=== PATIENT | female | born 1935 | race Hispanic/Latino ===

== ENCOUNTER 2016-09-23 15:21 | Outpatient (CLI) | payer MEDICARE ==
[2016-09-23 15:50] LABS: Appearance,CSF Clear; White Blood Cell,CSF 0 /mm3 (1-10)
[2016-09-23 17:03] LABS: Basophils CSF 0 %
[2016-09-23 19:14] LABS: CSF Diff Status Complete
[2016-09-23 19:15] LABS: Glucose,CSF < 2 mg/dL
== END 2016-09-23 15:22 | disposition home or self-care (01) ==
LOC: LAB 15:21 → LABHHL 15:21 → LAB 15:22
PROVIDERS: ATTEND Neurological Surgery
DX: G91.2 (Idiopathic) normal pressure hydrocephalus (principal)
CPT/HCPCS: 82947; 84160; 87075; 87116; 89051

== ENCOUNTER 2020-03-16 06:07 | Inpatient (IN) | payer MEDICARE, OTHER ==
[~2020-03-16 06:07] MED LIST: BACTERIOSTATIC SODIUM CHLORIDE 0.9% 30 ML VIAL INFILTRATI ONE; SODIUM CHLORIDE 0.9% 1000 ML 1,000 ML IV SCH
[2020-03-16] MEDS ORDERED: BACITRACIN 50,000 UNIT VIAL ONE (06:52)
[2020-03-16] MEDS ORDERED: GELATIN SPONGE SIZE 100 TP ONE (06:52)
[2020-03-16] MEDS ORDERED: LIDOCAINE 0.5%/EPINEPHRINE 1:200,000 VIAL (50 ML) MDV INFILTRATI ONE ×3 (06:52→09:00)
[2020-03-16] MEDS ORDERED: SODIUM CHLORIDE P/F VIAL 10 ML 10 ML ONE (06:52)
[2020-03-16] MEDS ORDERED: THROMBIN (RECOMBINANT) 5,000 UNIT VIAL TP ONE (06:53)
--- NOTE | 2020-03-16 07:28 | Anesthesia Consultation ---
Anesthesia Consult and Med Hx Date of service: 03/16/20 - Airway Anesthetic Teeth Evaluation: Good ROM Head & Neck: Inadequate Mental/Hyoid Distance: Inadequate Mallampati Class: Class III Intubation Access Assessment: Possibly Difficult - Pulmonary Exam CTA: Yes - Cardiac Exam Cardiac Exam: RRR - Pre-Operative Health Status ASA Pre-Surgery Classification: ASA4 Proposed Anesthetic Plan: General - Central Nervous System Hx Neuromuscular Disorder: Yes (normal pressure hydrocephalus)
[2020-03-16] MEDS ORDERED: PHENYLEPHRINE/NS 1,000 MCG/10 ML SYRINGE (OR USE) IV ONE (07:30)
[2020-03-16] MEDS ORDERED: dexAMETHasone 20 MG/5 ML VIAL ONE (07:30)
--- NOTE | 2020-03-16 07:30 | Anesthesia Day of Surgery ---
Anesthesia Day of Surgery - Day of Surgery Patient Examined: Yes Patient H&P Reviewed: Yes Patient is NPO: Yes
[2020-03-16] MEDS ORDERED: ROCURONIUM 50 MG/5 ML INJ IV ONE (07:32)
[2020-03-16] MEDS ORDERED: propofoL 200 MG/20 ML VIAL IV ONE (07:32)
[2020-03-16] MEDS ORDERED: LIDOCAINE MPF (2%) 20 MG/1 ML VIAL 5 ML ONE (07:33)
[2020-03-16] MEDS ORDERED: fentaNYL 100 MCG/2 ML INJ ONE (07:33)
[2020-03-16] MEDS ORDERED: ONDANSETRON 4 MG/2 ML INJ ONE (07:33)
[2020-03-16] MEDS ORDERED: SODIUM CHLORIDE 0.9% 0 ML ONE (07:34)
[2020-03-16] MEDS ORDERED: SODIUM CHLORIDE 0.9% 250ML 0 ML ONE (07:34)
[2020-03-16] MEDS ORDERED: fentaNYL 100 MCG/2 ML INJ IV PRN (07:52)
[2020-03-16] MEDS ORDERED: BACITRACIN ZINC OINT 28.4 GM TP ONE (08:11)
[2020-03-16] MEDS ORDERED: SUGAMMADEX SODIUM 200 MG/2 ML VIAL IV ONE (08:59)
[2020-03-16] MEDS ORDERED: SODIUM CHLORIDE 0.9% IRR 1,500 ML BOTTLE IR ONE (09:00)
[2020-03-16 09:50] LABS: Glucose,CSF 74 mg/dL
--- NOTE | 2020-03-16 09:52 | Post Operative Note ---
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
--- NOTE | 2020-03-16 11:26 | Post Anesthesia Evaluation ---
- Post Anesthesia Evaluation Patient Participated: Yes Airway Patent: Yes Stable Respiratory Function: Yes Nausea/Vomiting: No Temp > 96.8F: Yes Pain Manageable: Yes Adequeate Hydration: Yes Anesthesia Complications: No
[2020-03-16 11:38] LABS: Appearance,CSF Clear; Red Blood Cell,CSF 0 /mm3 (0-0); Total Cells Counted 17 /mm3; White Blood Cell,CSF 0 /mm3 (1-10)
--- NOTE | 2020-03-16 18:15 | Consultation ---
History of Present Illness - Reason for Consult Consult date: 03/16/20 Ventricular Shunt Monitoring - History of Present Illness 85 y/o female admitted post op for ventricular drain revision. Asked by neurosurgery to monitor in ICU. Medications and Allergies Allergies Allergy/AdvReac Type Severity Reaction Status Date / Time amoxicillin AdvReac Unknown Verified 03/16/20 06:22 cefuroxime [From Ceftin] AdvReac Nausea Verified 03/16/20 06:22 codeine AdvReac Unknown Verified 03/16/20 06:20 levofloxacin [From Levaquin] AdvReac Unknown Verified 03/16/20 06:22 nitrofurantoin AdvReac Unknown Verified 03/16/20 06:22 [From Macrobid] rofecoxib [From Vioxx] AdvReac Unknown Verified 03/16/20 06:22 sulfamethoxazole AdvReac Unknown Verified 03/16/20 06:22 [From Bactrim] trimethoprim [From Bactrim] AdvReac Unknown Verified 03/16/20 06:22 Home Medications Medication Instructions Recorded Confirmed Last Taken Type Aspirin [Adult Aspirin] 81 mg PO DAILY 03/13/20 03/16/20 03/13/20 History Latanoprostene Bunod [Vyzulta] 2.5 drops OP DAILY 03/13/20 03/13/20 03/15/20 History Tolterodine (Nf) [Detrol LA] 4 mg PO QDAY 03/13/20 03/13/20 03/15/20 History predniSONE [Deltasone] 4 mg PO QDAY 03/13/20 03/13/20 03/15/20 History Mirabegron [Myrbetriq] 25 mg PO QDAY 03/15/20 03/15/20 03/15/20 History Active Meds: Active Medications Hydralazine HCl (Apresoline) 5 mg IV Q4H PRN PRN Reason: Hypertension Clindamycin HCl (Cleocin 900 Mg/50 Ml) 900 mg in 50 mls @ 100 mls/hr IV PREOP NR; Protocol Stop: 03/16/20 21:00 Clindamycin HCl (Cleocin 900 Mg/50 Ml) 900 mg in 50 mls @ 100 mls/hr IV Q8HR FELICIANO; Protocol Last Admin: 03/16/20 15:32 Dose: 100 mls/hr Documented by: Sodium Chloride (Nacl 0.9% 1000 Ml) 1,000 mls @ 75 mls/hr IV DIRECT FELICIANO Tramadol HCl (Ultram) 50 mg PO Q6H PRN PRN Reason: Pain, Moderate (4-6) Review of Systems All systems: negative Exam - Constitutional Vitals: Temp Pulse Resp BP Pulse Ox 98.1 F 58 L 14 134/56 100 03/16/20 09:45 03/16/20 16:26 03/16/20 10:15 03/16/20 10:15 03/16/20 10:15 General appearance: Present: no acute distress, well-nourished - EENT Eyes: Present: PERRL, EOM intact ENT: hearing intact - Neck Neck: Present: supple, normal ROM - Respiratory Respiratory effort: normal Respiratory: bilateral: CTA - Cardiovascular Rhythm: regular Assessment and Plan Stable 85 y/o post ventric revision resume home meds tomorrow If bed situation comes up, patient is stable enough for surgical floor with remote tele Will transfer out of unit in AM.
--- NOTE | 2020-03-17 12:27 | Progress Note ---
Assessment and Plan Stable 85 y/o post ventric revision resume home meds, hold asa at request of surgery. We do not have Vyzulta and Mirabegron on Formulary here. Family will need to bring in if possible. One is for Glaucoma and the other med is for overactive bladder. If bed situation comes up, patient is stable enough for surgical floor with remote tele Will transfer out of unit. Will place orders for now and order consult to hospitalist as neurosurgery needs help with management. Will sign off once out of unit. Subjective Date of service: 03/17/20 Interval history: No acute events. Spoke with Neurosurgery over the phone this am. They are going to get a CT of the head. mental status is fine. patient is stable. Objective - Constitutional Vitals: Vital Signs - 12hr 03/17/20 03/17/20 03/17/20 00:21 00:31 00:41 Temperature Pulse Rate 58 L 66 55 L Pulse Rate [ Apical] Pulse Rate [ From Monitor] Pulse Rate [ Left Dorsalis Pedis] Pulse Rate [ Left Radial] Pulse Rate [ Right Dorsalis Pedis] Pulse Rate [ Right Radial] Respiratory 17 9 L 13 Rate Blood Pressure 154/52 154/52 154/52 O2 Sat by Pulse 91 95 93 Oximetry 03/17/20 03/17/20 03/17/20 00:51 01:00 01:11 Temperature Pulse Rate 58 L 54 L 54 L Pulse Rate [ Apical] Pulse Rate [ From Monitor] Pulse Rate [ Left Dorsalis Pedis] Pulse Rate [ Left Radial] Pulse Rate [ Right Dorsalis Pedis] Pulse Rate [ Right Radial] Respiratory 15 14 12 Rate Blood Pressure 154/52 138/58 138/58 O2 Sat by Pulse 91 91 95 Oximetry 03/17/20 03/17/20 03/17/20 01:21 01:31 01:41 Temperature Pulse Rate 57 L 53 L 58 L Pulse Rate [ Apical] Pulse Rate [ From Monitor] Pulse Rate [ Left Dorsalis Pedis] Pulse Rate [ Left Radial] Pulse Rate [ Right Dorsalis Pedis] Pulse Rate [ Right Radial] Respiratory 12 13 12 Rate Blood Pressure 138/58 138/58 138/58 O2 Sat by Pulse 94 95 95 Oximetry 03/17/20 03/17/20 03/17/20 01:51 02:01 02:11 Temperature Pulse Rate 54 L 56 L 60 Pulse Rate [ Apical] Pulse Rate [ From Monitor] Pulse Rate [ Left Dorsalis Pedis] Pulse Rate [ Left Radial] Pulse Rate [ Right Dorsalis Pedis] Pulse Rate [ Right Radial] Respiratory 13 13 13 Rate Blood Pressure 138/58 144/55 144/55 O2 Sat by Pulse 94 91 95 Oximetry 03/17/20 03/17/20 03/17/20 02:21 02:31 02:41 Temperature Pulse Rate 55 L 57 L 58 L Pulse Rate [ Apical] Pulse Rate [ From Monitor] Pulse Rate [ Left Dorsalis Pedis] Pulse Rate [ Left Radial] Pulse Rate [ Right Dorsalis Pedis] Pulse Rate [ Right Radial] Respiratory 13 11 L 13 Rate Blood Pressure 144/55 144/55 144/55 O2 Sat by Pulse 97 93 95 Oximetry 03/17/20 03/17/20 03/17/20 02:51 03:01 03:11 Temperature Pulse Rate 55 L 54 L 56 L Pulse Rate [ Apical] Pulse Rate [ From Monitor] Pulse Rate [ Left Dorsalis Pedis] Pulse Rate [ Left Radial] Pulse Rate [ Right Dorsalis Pedis] Pulse Rate [ Right Radial] Respiratory 13 15 12 Rate Blood Pressure 144/55 149/56 149/56 O2 Sat by Pulse 93 95 95 Oximetry 03/17/20 03/17/20 03/17/20 03:21 03:24 03:31 Temperature 97.9 F Pulse Rate 55 L 55 L Pulse Rate [ Apical] Pulse Rate [ From Monitor] Pulse Rate [ Left Dorsalis Pedis] Pulse Rate [ Left Radial] Pulse Rate [ Right Dorsalis Pedis] Pulse Rate [ Right Radial] Respiratory 13 14 Rate Blood Pressure 149/56 149/56 O2 Sat by Pulse 93 95 Oximetry 03/17/20 03/17/20 03/17/20 03:32 03:34 03:41 Temperature Pulse Rate 56 L 57 L Pulse Rate [ 65 Apical] Pulse Rate [ 65 From Monitor] Pulse Rate [ 65 Left Dorsalis Pedis] Pulse Rate [ 65 Left Radial] Pulse Rate [ 65 Right Dorsalis Pedis] Pulse Rate [ 65 Right Radial] Respiratory 22 16 Rate Blood Pressure 149/56 O2 Sat by Pulse 96 95 Oximetry 03/17/20 03/17/20 03/17/20 03:51 04:00 04:11 Temperature Pulse Rate 55 L 56 L 55 L Pulse Rate [ Apical] Pulse Rate [ From Monitor] Pulse Rate [ Left Dorsalis Pedis] Pulse Rate [ Left Radial] Pulse Rate [ Right Dorsalis Pedis] Pulse Rate [ Right Radial] Respiratory 15 13 14 Rate Blood Pressure 149/56 156/58 156/58 O2 Sat by Pulse 92 93 96 Oximetry 03/17/20 03/17/20 03/17/20 04:21 04:31 04:41 Temperature Pulse Rate 59 L 57 L 63 Pulse Rate [ Apical] Pulse Rate [ From Monitor] Pulse Rate [ Left Dorsalis Pedis] Pulse Rate [ Left Radial] Pulse Rate [ Right Dorsalis Pedis] Pulse Rate [ Right Radial] Respiratory 10 L 14 11 L Rate Blood Pressure 156/58 156/58 156/58 O2 Sat by Pulse 95 96 96 Oximetry 03/17/20 03/17/20 03/17/20 04:51 05:00 05:11 Temperature Pulse Rate 57 L 59 L 70 Pulse Rate [ Apical] Pulse Rate [ From Monitor] Pulse Rate [ Left Dorsalis Pedis] Pulse Rate [ Left Radial] Pulse Rate [ Right Dorsalis Pedis] Pulse Rate [ Right Radial] Respiratory 14 16 17 Rate Blood Pressure 156/58 153/62 153/62 O2 Sat by Pulse 96 95 95 Oximetry 03/17/20 03/17/20 03/17/20 05:21 05:31 05:41 Temperature Pulse Rate 58 L 57 L 55 L Pulse Rate [ Apical] Pulse Rate [ From Monitor] Pulse Rate [ Left Dorsalis Pedis] Pulse Rate [ Left Radial] Pulse Rate [ Right Dorsalis Pedis] Pulse Rate [ Right Radial] Respiratory 12 13 13 Rate Blood Pressure 153/62 153/62 153/62 O2 Sat by Pulse 96 95 96 Oximetry 03/17/20 03/17/20 03/17/20 05:51 06:00 06:11 Temperature Pulse Rate 60 57 L 54 L Pulse Rate [ Apical] Pulse Rate [ From Monitor] Pulse Rate [ Left Dorsalis Pedis] Pulse Rate [ Left Radial] Pulse Rate [ Right Dorsalis Pedis] Pulse Rate [ Right Radial] Respiratory 18 14 14 Rate Blood Pressure 153/62 158/55 158/55 O2 Sat by Pulse 94 97 96 Oximetry 03/17/20 03/17/20 03/17/20 06:21 06:31 06:41 Temperature Pulse Rate 54 L 53 L 55 L Pulse Rate [ Apical] Pulse Rate [ From Monitor] Pulse Rate [ Left Dorsalis Pedis] Pulse Rate [ Left Radial] Pulse Rate [ Right Dorsalis Pedis] Pulse Rate [ Right Radial] Respiratory 13 15 14 Rate Blood Pressure 158/55 158/55 158/55 O2 Sat by Pulse 95 94 96 Oximetry 03/17/20 03/17/20 03/17/20 06:51 07:01 07:11 Temperature Pulse Rate 52 L 55 L 53 L Pulse Rate [ Apical] Pulse Rate [ From Monitor] Pulse Rate [ Left Dorsalis Pedis] Pulse Rate [ Left Radial] Pulse Rate [ Right Dorsalis Pedis] Pulse Rate [ Right Radial] Respiratory 14 9 L 12 Rate Blood Pressure 158/55 139/52 139/52 O2 Sat by Pulse 96 96 95 Oximetry 03/17/20 03/17/20 03/17/20 07:21 07:31 07:41 Temperature Pulse Rate 53 L 56 L 53 L Pulse Rate [ Apical] Pulse Rate [ From Monitor] Pulse Rate [ Left Dorsalis Pedis] Pulse Rate [ Left Radial] Pulse Rate [ Right Dorsalis Pedis] Pulse Rate [ Right Radial] Respiratory 13 11 L 13 Rate Blood Pressure 139/52 139/52 139/52 O2 Sat by Pulse 95 93 97 Oximetry 03/17/20 03/17/20 07:51 08:00 Temperature Pulse Rate 60 58 L Pulse Rate [ 58 L Apical] Pulse Rate [ 58 L From Monitor] Pulse Rate [ 58 L Left Dorsalis Pedis] Pulse Rate [ 58 L Left Radial] Pulse Rate [ 58 L Right Dorsalis Pedis] Pulse Rate [ 58 L Right Radial] Respiratory 19 13 Rate Blood Pressure 139/52 155/56 O2 Sat by Pulse 94 94 Oximetry Medications & Allergies - Medications Allergies/Adverse Reactions: Allergies amoxicillin Adverse Reaction (Verified 03/16/20 06:22) Unknown GASTRITIS cefuroxime [From Ceftin] Adverse Reaction (Verified 03/16/20 06:22) Nausea STATES RELIEVED WITH FOOD codeine Adverse Reaction (Verified 03/16/20 06:20) Unknown levofloxacin [From Levaquin] Adverse Reaction (Verified 03/16/20 06:22) Unknown WEAKNESS nitrofurantoin [From Macrobid] Adverse Reaction (Verified 03/16/20 06:22) Unknown GASTRITIS rofecoxib [From Vioxx] Adverse Reaction (Verified 03/16/20 06:22) Unknown CHEST PAIN sulfamethoxazole [From Bactrim] Adverse Reaction (Verified 03/16/20 06:22) Unknown GASTRITIS trimethoprim [From Bactrim] Adverse Reaction (Verified 03/16/20 06:22) Unknown GASTRITIS Home Medications: Home Medications Medication Instructions Recorded Confirmed Last Taken Type Aspirin [Adult Aspirin] 81 mg PO DAILY 03/13/20 03/16/20 03/13/20 History Latanoprostene Bunod [Vyzulta] 2.5 drops OP DAILY 03/13/20 03/13/20 03/15/20 History Tolterodine (Nf) [Detrol LA] 4 mg PO QDAY 03/13/20 03/13/20 03/15/20 History predniSONE [Deltasone] 4 mg PO QDAY 03/13/20 03/13/20 03/15/20 History Mirabegron [Myrbetriq] 25 mg PO QDAY 03/15/20 03/15/20 03/15/20 History Active Medications: Generic Name Dose Route Start Last Admin Trade Name Freq PRN Reason Stop Dose Admin Hydralazine HCl 5 mg 03/16/20 11:48 Apresoline IV Q4H PRN Hypertension Clindamycin HCl 900 mg in 50 mls @ 100 mls/hr 03/16/20 14:00 03/17/20 05:51 Cleocin 900 Mg/50 Ml IV 100 mls/hr Q8HR FELICIANO Administration Protocol Sodium Chloride 1,000 mls @ 75 mls/hr 03/16/20 11:48 Nacl 0.9% 1000 Ml IV DIRECT FELICIANO Tramadol HCl 50 mg 03/16/20 11:48 Ultram PO Q6H PRN Pain, Moderate (4-6)
--- NOTE | 2020-03-17 13:27 | Progress Note ---
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 She denies present concerns, denies pain. Objective - Exam Narrative Exam: seen and examined no acute distress awake and alert states that she is ok, no pain follows commands briskly x 4 without focal deficit - Vital Sign Vital Signs - 12hr 03/17/20 03/17/20 03/17/20 01:31 01:41 01:51 Temperature Pulse Rate 53 L 58 L 54 L Pulse Rate [ Apical] Pulse Rate [ From Monitor] Pulse Rate [ Left Dorsalis Pedis] Pulse Rate [ Left Radial] Pulse Rate [ Right Dorsalis Pedis] Pulse Rate [ Right Radial] Respiratory 13 12 13 Rate Blood Pressure 138/58 138/58 138/58 O2 Sat by Pulse 95 95 94 Oximetry 03/17/20 03/17/20 03/17/20 02:01 02:11 02:21 Temperature Pulse Rate 56 L 60 55 L Pulse Rate [ Apical] Pulse Rate [ From Monitor] Pulse Rate [ Left Dorsalis Pedis] Pulse Rate [ Left Radial] Pulse Rate [ Right Dorsalis Pedis] Pulse Rate [ Right Radial] Respiratory 13 13 13 Rate Blood Pressure 144/55 144/55 144/55 O2 Sat by Pulse 91 95 97 Oximetry 03/17/20 03/17/20 03/17/20 02:31 02:41 02:51 Temperature Pulse Rate 57 L 58 L 55 L Pulse Rate [ Apical] Pulse Rate [ From Monitor] Pulse Rate [ Left Dorsalis Pedis] Pulse Rate [ Left Radial] Pulse Rate [ Right Dorsalis Pedis] Pulse Rate [ Right Radial] Respiratory 11 L 13 13 Rate Blood Pressure 144/55 144/55 144/55 O2 Sat by Pulse 93 95 93 Oximetry 03/17/20 03/17/20 03/17/20 03:01 03:11 03:21 Temperature Pulse Rate 54 L 56 L 55 L Pulse Rate [ Apical] Pulse Rate [ From Monitor] Pulse Rate [ Left Dorsalis Pedis] Pulse Rate [ Left Radial] Pulse Rate [ Right Dorsalis Pedis] Pulse Rate [ Right Radial] Respiratory 15 12 13 Rate Blood Pressure 149/56 149/56 149/56 O2 Sat by Pulse 95 95 93 Oximetry 03/17/20 03/17/20 03/17/20 03:24 03:31 03:32 Temperature 97.9 F Pulse Rate 55 L Pulse Rate [ 65 Apical] Pulse Rate [ 65 From Monitor] Pulse Rate [ 65 Left Dorsalis Pedis] Pulse Rate [ 65 Left Radial] Pulse Rate [ 65 Right Dorsalis Pedis] Pulse Rate [ 65 Right Radial] Respiratory 14 22 Rate Blood Pressure 149/56 O2 Sat by Pulse 95 96 Oximetry 03/17/20 03/17/20 03/17/20 03:34 03:41 03:51 Temperature Pulse Rate 56 L 57 L 55 L Pulse Rate [ Apical] Pulse Rate [ From Monitor] Pulse Rate [ Left Dorsalis Pedis] Pulse Rate [ Left Radial] Pulse Rate [ Right Dorsalis Pedis] Pulse Rate [ Right Radial] Respiratory 16 15 Rate Blood Pressure 149/56 149/56 O2 Sat by Pulse 95 92 Oximetry 03/17/20 03/17/20 03/17/20 04:00 04:11 04:21 Temperature Pulse Rate 56 L 55 L 59 L Pulse Rate [ Apical] Pulse Rate [ From Monitor] Pulse Rate [ Left Dorsalis Pedis] Pulse Rate [ Left Radial] Pulse Rate [ Right Dorsalis Pedis] Pulse Rate [ Right Radial] Respiratory 13 14 10 L Rate Blood Pressure 156/58 156/58 156/58 O2 Sat by Pulse 93 96 95 Oximetry 03/17/20 03/17/20 03/17/20 04:31 04:41 04:51 Temperature Pulse Rate 57 L 63 57 L Pulse Rate [ Apical] Pulse Rate [ From Monitor] Pulse Rate [ Left Dorsalis Pedis] Pulse Rate [ Left Radial] Pulse Rate [ Right Dorsalis Pedis] Pulse Rate [ Right Radial] Respiratory 14 11 L 14 Rate Blood Pressure 156/58 156/58 156/58 O2 Sat by Pulse 96 96 96 Oximetry 03/17/20 03/17/20 03/17/20 05:00 05:11 05:21 Temperature Pulse Rate 59 L 70 58 L Pulse Rate [ Apical] Pulse Rate [ From Monitor] Pulse Rate [ Left Dorsalis Pedis] Pulse Rate [ Left Radial] Pulse Rate [ Right Dorsalis Pedis] Pulse Rate [ Right Radial] Respiratory 16 17 12 Rate Blood Pressure 153/62 153/62 153/62 O2 Sat by Pulse 95 95 96 Oximetry 03/17/20 03/17/20 03/17/20 05:31 05:41 05:51 Temperature Pulse Rate 57 L 55 L 60 Pulse Rate [ Apical] Pulse Rate [ From Monitor] Pulse Rate [ Left Dorsalis Pedis] Pulse Rate [ Left Radial] Pulse Rate [ Right Dorsalis Pedis] Pulse Rate [ Right Radial] Respiratory 13 13 18 Rate Blood Pressure 153/62 153/62 153/62 O2 Sat by Pulse 95 96 94 Oximetry 03/17/20 03/17/20 03/17/20 06:00 06:11 06:21 Temperature Pulse Rate 57 L 54 L 54 L Pulse Rate [ Apical] Pulse Rate [ From Monitor] Pulse Rate [ Left Dorsalis Pedis] Pulse Rate [ Left Radial] Pulse Rate [ Right Dorsalis Pedis] Pulse Rate [ Right Radial] Respiratory 14 14 13 Rate Blood Pressure 158/55 158/55 158/55 O2 Sat by Pulse 97 96 95 Oximetry 03/17/20 03/17/20 03/17/20 06:31 06:41 06:51 Temperature Pulse Rate 53 L 55 L 52 L Pulse Rate [ Apical] Pulse Rate [ From Monitor] Pulse Rate [ Left Dorsalis Pedis] Pulse Rate [ Left Radial] Pulse Rate [ Right Dorsalis Pedis] Pulse Rate [ Right Radial] Respiratory 15 14 14 Rate Blood Pressure 158/55 158/55 158/55 O2 Sat by Pulse 94 96 96 Oximetry 03/17/20 03/17/20 03/17/20 07:01 07:11 07:21 Temperature Pulse Rate 55 L 53 L 53 L Pulse Rate [ Apical] Pulse Rate [ From Monitor] Pulse Rate [ Left Dorsalis Pedis] Pulse Rate [ Left Radial] Pulse Rate [ Right Dorsalis Pedis] Pulse Rate [ Right Radial] Respiratory 9 L 12 13 Rate Blood Pressure 139/52 139/52 139/52 O2 Sat by Pulse 96 95 95 Oximetry 03/17/20 03/17/20 03/17/20 07:31 07:41 07:51 Temperature Pulse Rate 56 L 53 L 60 Pulse Rate [ Apical] Pulse Rate [ From Monitor] Pulse Rate [ Left Dorsalis Pedis] Pulse Rate [ Left Radial] Pulse Rate [ Right Dorsalis Pedis] Pulse Rate [ Right Radial] Respiratory 11 L 13 19 Rate Blood Pressure 139/52 139/52 139/52 O2 Sat by Pulse 93 97 94 Oximetry 03/17/20 03/17/20 03/17/20 08:00 08:11 08:21 Temperature Pulse Rate 58 L 49 L 52 L Pulse Rate [ 58 L Apical] Pulse Rate [ 58 L From Monitor] Pulse Rate [ 58 L Left Dorsalis Pedis] Pulse Rate [ 58 L Left Radial] Pulse Rate [ 58 L Right Dorsalis Pedis] Pulse Rate [ 58 L Right Radial] Respiratory 13 11 L 14 Rate Blood Pressure 155/56 155/56 155/56 O2 Sat by Pulse 94 93 97 Oximetry 03/17/20 03/17/20 03/17/20 08:31 08:41 08:51 Temperature Pulse Rate 53 L 52 L 53 L Pulse Rate [ Apical] Pulse Rate [ From Monitor] Pulse Rate [ Left Dorsalis Pedis] Pulse Rate [ Left Radial] Pulse Rate [ Right Dorsalis Pedis] Pulse Rate [ Right Radial] Respiratory 14 14 11 L Rate Blood Pressure 155/56 155/56 155/56 O2 Sat by Pulse 94 95 95 Oximetry 03/17/20 03/17/20 03/17/20 09:01 09:11 09:21 Temperature Pulse Rate 55 L 58 L 60 Pulse Rate [ Apical] Pulse Rate [ From Monitor] Pulse Rate [ Left Dorsalis Pedis] Pulse Rate [ Left Radial] Pulse Rate [ Right Dorsalis Pedis] Pulse Rate [ Right Radial] Respiratory 14 11 L 12 Rate Blood Pressure 146/74 155/56 155/56 O2 Sat by Pulse 95 96 97 Oximetry 03/17/20 03/17/20 03/17/20 09:31 09:41 09:51 Temperature Pulse Rate 57 L 57 L 63 Pulse Rate [ Apical] Pulse Rate [ From Monitor] Pulse Rate [ Left Dorsalis Pedis] Pulse Rate [ Left Radial] Pulse Rate [ Right Dorsalis Pedis] Pulse Rate [ Right Radial] Respiratory 9 L 18 9 L Rate Blood Pressure 155/56 146/74 146/74 O2 Sat by Pulse 98 96 95 Oximetry 03/17/20 03/17/20 03/17/20 10:01 10:11 10:21 Temperature Pulse Rate 65 66 58 L Pulse Rate [ Apical] Pulse Rate [ From Monitor] Pulse Rate [ Left Dorsalis Pedis] Pulse Rate [ Left Radial] Pulse Rate [ Right Dorsalis Pedis] Pulse Rate [ Right Radial] Respiratory 12 13 10 L Rate Blood Pressure 141/65 141/65 141/65 O2 Sat by Pulse 96 96 93 Oximetry 03/17/20 03/17/20 03/17/20 10:31 10:41 10:51 Temperature Pulse Rate 59 L 57 L 54 L Pulse Rate [ Apical] Pulse Rate [ From Monitor] Pulse Rate [ Left Dorsalis Pedis] Pulse Rate [ Left Radial] Pulse Rate [ Right Dorsalis Pedis] Pulse Rate [ Right Radial] Respiratory 11 L 12 11 L Rate Blood Pressure 141/65 141/65 141/65 O2 Sat by Pulse Oximetry 03/17/20 03/17/20 03/17/20 11:01 11:11 11:21 Temperature Pulse Rate 56 L 55 L 55 L Pulse Rate [ Apical] Pulse Rate [ From Monitor] Pulse Rate [ Left Dorsalis Pedis] Pulse Rate [ Left Radial] Pulse Rate [ Right Dorsalis Pedis] Pulse Rate [ Right Radial] Respiratory 10 L 11 L 13 Rate Blood Pressure 134/58 134/58 134/58 O2 Sat by Pulse Oximetry 03/17/20 03/17/20 03/17/20 11:31 11:41 11:51 Temperature Pulse Rate 60 54 L 60 Pulse Rate [ Apical] Pulse Rate [ From Monitor] Pulse Rate [ Left Dorsalis Pedis] Pulse Rate [ Left Radial] Pulse Rate [ Right Dorsalis Pedis] Pulse Rate [ Right Radial] Respiratory 13 12 14 Rate Blood Pressure 134/58 134/58 134/58 O2 Sat by Pulse 96 Oximetry 03/17/20 03/17/20 03/17/20 12:00 12:11 12:21 Temperature Pulse Rate 60 61 62 Pulse Rate [ 58 L Apical] Pulse Rate [ 58 L From Monitor] Pulse Rate [ 58 L Left Dorsalis Pedis] Pulse Rate [ 58 L Left Radial] Pulse Rate [ 58 L Right Dorsalis Pedis] Pulse Rate [ 58 L Right Radial] Respiratory 13 8 L 14 Rate Blood Pressure 143/59 143/59 143/59 O2 Sat by Pulse 96 93 96 Oximetry 03/17/20 03/17/20 03/17/20 12:31 12:41 12:51 Temperature Pulse Rate 64 61 63 Pulse Rate [ Apical] Pulse Rate [ From Monitor] Pulse Rate [ Left Dorsalis Pedis] Pulse Rate [ Left Radial] Pulse Rate [ Right Dorsalis Pedis] Pulse Rate [ Right Radial] Respiratory 15 13 12 Rate Blood Pressure 143/59 143/59 143/59 O2 Sat by Pulse 95 95 97 Oximetry 03/17/20 13:01 Temperature Pulse Rate 59 L Pulse Rate [ Apical] Pulse Rate [ From Monitor] Pulse Rate [ Left Dorsalis Pedis] Pulse Rate [ Left Radial] Pulse Rate [ Right Dorsalis Pedis] Pulse Rate [ Right Radial] Respiratory 14 Rate Blood Pressure 118/37 O2 Sat by Pulse 95 Oximetry
--- NOTE | 2020-03-17 14:20 | Cat Scan Report ---
CT head/brain wo con INDICATION: post op follow-up. TECHNIQUE: All CT scans at this location are performed using CT dose reduction for ALARA by means of automated e xposure control. COMPARISON: None available. FINDINGS: Imaged paranasal and mastoid sinuses are clear. Shunt catheter has been placed, with its tip in the p osterior horn of the right lateral ventricle, just to the right of midline. Mild cortical involution and moderate chronic white matter ischemic change. No mass, hemorrhage or ot her acute abnormality. IMPRESSION: 1. Shunt catheter in the posterior horn of the right lateral ventricle. No apparent complications. Signer Name: Fernando Delvalle MD Signed: 03/17/2020 2:15 PM Workstation Name: [id number]
[2020-03-17] MEDS ORDERED: ASPIRIN EC 81 MG TAB PO SCH (19:34)
[2020-03-17] MEDS ORDERED: LATANOPROSTENE BUNOD OP SCH (19:34)
[2020-03-17] MEDS ORDERED: TOLTERODINE 4 MG PO SCH (19:34)
[2020-03-17] MEDS ORDERED: predniSONE 5 MG TAB PO SCH (19:34)
[2020-03-17] MEDS ORDERED: NON-FORMULARY EACH (Mirabegron [Myrbetriq] 25 MG) PO SCH (19:34)
[2020-03-17] MEDS: hydrALAZINE 20 MG/1 ML INJ IV PRN (21:16)
[2020-03-17] MEDS: predniSONE 5 MG/5 ML ORAL LIQUID PO SCH (22:28)
[2020-03-18] MEDS: traMADol 50 MG TAB PO PRN ×2 (00:27→21:21)
[2020-03-18] MEDS: hydrALAZINE 20 MG/1 ML INJ IV PRN (03:47)
--- NOTE | 2020-03-18 07:10 | Consultation ---
History of Present Illness - Reason for Consult Consult date: 03/17/20 Medical management Requesting physician: YE LIZARRAGA - History of Present Illness 85 y/o female admitted post op for ventricular drain revision. As per coloring room man to take care of the patient after transfer to the medical floor. Patient has a history of glaucoma and overactive bladder. Patient had a malfunctioning BANQUET SET UP PERSON shunt for which had a revision of the BANQUET SET UP PERSON shunt.. Patient is doing well. No fever. Past History Past Medical History: other (Glaucoma and overactive bladder) Past Surgical History: Other (BANQUET SET UP PERSON shunt) Social history: lives with family, full code Family history: hypertension Medications and Allergies Allergies Allergy/AdvReac Type Severity Reaction Status Date / Time amoxicillin AdvReac Unknown Verified 03/16/20 06:22 cefuroxime [From Ceftin] AdvReac Nausea Verified 03/16/20 06:22 codeine AdvReac Unknown Verified 03/16/20 06:20 levofloxacin [From Levaquin] AdvReac Unknown Verified 03/16/20 06:22 nitrofurantoin AdvReac Unknown Verified 03/16/20 06:22 [From Macrobid] rofecoxib [From Vioxx] AdvReac Unknown Verified 03/16/20 06:22 sulfamethoxazole AdvReac Unknown Verified 03/16/20 06:22 [From Bactrim] trimethoprim [From Bactrim] AdvReac Unknown Verified 03/16/20 06:22 Home Medications Medication Instructions Recorded Confirmed Last Taken Type Aspirin [Adult Aspirin] 81 mg PO DAILY 03/13/20 03/16/20 03/13/20 History Latanoprostene Bunod [Vyzulta] 2.5 drops OP DAILY 03/13/20 03/13/20 03/15/20 History Tolterodine (Nf) [Detrol LA] 4 mg PO QDAY 03/13/20 03/13/20 03/15/20 History predniSONE [Deltasone] 4 mg PO QDAY 03/13/20 03/13/20 03/15/20 History Mirabegron [Myrbetriq] 25 mg PO QDAY 03/15/20 03/15/20 03/15/20 History Active Meds: Active Medications Aspirin (Halfprin Ec) 81 mg PO DAILY FELICIANO Hydralazine HCl (Apresoline) 5 mg IV Q4H PRN PRN Reason: Hypertension Last Admin: 03/18/20 03:47 Dose: 5 mg Documented by: Clindamycin HCl (Cleocin 900 Mg/50 Ml) 900 mg in 50 mls @ 100 mls/hr IV Q8HR FELICIANO; Protocol Last Admin: 03/17/20 22:37 Dose: 100 mls/hr Documented by: Sodium Chloride (Nacl 0.9% 1000 Ml) 1,000 mls @ 75 mls/hr IV DIRECT FELICIANO Miscellaneous Medication (Latanoprostene Bunod [Vyzulta]) 2.5 drops OP DAILY FELICIANO Miscellaneous Medication (Mirabegron [Myrbetriq]) 25 mg PO QDAY FELICIANO Miscellaneous Medication (Tolterodine (Nf)) 4 mg PO QDAY FELICIANO Prednisone (Prednisone) 4 mg PO QDAY FELICIANO Last Admin: 03/17/20 22:28 Dose: 4 mg Documented by: Tramadol HCl (Ultram) 50 mg PO Q6H PRN PRN Reason: Pain, Moderate (4-6) Last Admin: 03/18/20 00:27 Dose: 50 mg Documented by: Review of Systems All systems: negative Exam - Constitutional Vitals: Temp Pulse Resp BP Pulse Ox 97.4 F L 80 18 138/62 96 03/18/20 05:54 03/18/20 05:54 03/18/20 05:54 03/18/20 05:54 03/18/20 05:54 General appearance: Present: no acute distress, well-nourished - EENT Eyes: Present: PERRL ENT: hearing intact, clear oral mucosa - Neck Neck: Present: supple, normal ROM - Respiratory Respiratory effort: normal Respiratory: bilateral: CTA - Cardiovascular Heart rate: 78 Rhythm: regular Heart Sounds: Present: S1 & S2. Absent: rub, click - Extremities Extremities: pulses symmetrical, No edema Peripheral Pulses: within normal limits - Abdominal General gastrointestinal: Present: soft, non-tender, non-distended, normal bowel sounds Female genitourinary: Present: normal - Integumentary Integumentary: Present: clear, warm, dry - Musculoskeletal Musculoskeletal: gait normal, strength equal bilaterally - Psychiatric Psychiatric: appropriate mood/affect, intact judgment & insight - Neurologic Neurologic: CNII-XII intact, moves all extremities Assessment and Plan - Patient Problems (1) S/P BANQUET SET UP PERSON shunt Current Visit: Yes Status: Acute Plan to address problem: Patient had a revision of the BANQUET SET UP PERSON shunt (2) Overactive bladder Current Visit: Yes Status: Chronic Plan to address problem: Continue Myrbetriq (3) Glaucoma Current Visit: Yes Status: Chronic Qualifiers: Glaucoma type: unspecified Plan to address problem: Continue eyedrops (4) DVT prophylaxis Current Visit: Yes Status: Acute Plan to address problem: On SCDs and GI prophylaxis (5) Discharge planning issues Current Visit: Yes Status: Acute Plan to address problem: Patient being discharged if cleared with neurosurgery tomorrow
[2020-03-18] MEDS: predniSONE 5 MG/5 ML ORAL LIQUID PO SCH (09:32)
[2020-03-18] MEDS ORDERED: ENOXAPARIN 100 MG/1 ML INJ SUB-Q SCH (10:00)
--- NOTE | 2020-03-18 10:30 | Progress Note ---
Assessment and Plan Assessment and plan: Patient Problems (1) S/P IRONING PLEATER shunt Current Visit: Yes Status: Acute Plan to address problem: Patient had a revision of the IRONING PLEATER shunt Neurosurgery following (2) Overactive bladder Current Visit: Yes Status: Chronic Plan to address problem: Continue Yesi Has a mills which she states was placed due to urinary difficulty (3) Glaucoma Current Visit: Yes Status: Chronic Qualifiers: Glaucoma type: unspecified Plan to address problem: Continue eyedrops (4) DVT prophylaxis Current Visit: Yes Status: Acute Plan to address problem: On SCDs and GI prophylaxis (5) Discharge planning issues Current Visit: Yes Status: Acute Plan to address problem: Patient being discharged if cleared with neurosurgery tomorrow History Interval history: Patient seen and examined at bedside this morning She has no complaints today She has a Mills in place. She mentions this was placed for urinary retention Hospitalist Physical - Physical exam Narrative exam: VITAL SIGNS: Reviewed. GENERAL: Awake and alert on response to questions HEAD: No signs of head trauma. EYES: Pupils are equal. Extraocular motions intact. EARS: Hearing grossly intact. MOUTH: Oropharynx is normal. NECK: No adenopathy, no JVD. CHEST: Chest with diminished breath sounds bilaterally. No wheezes, rales, or rhonchi. CARDIAC: Regular rate and rhythm. S1 and S2, without murmurs, gallops, or rubs. VASCULAR: No Edema. Peripheral pulses normal and equal in all extremities. ABDOMEN: Soft, non tender and non distended. No rebound or guarding, and no masses palpated. Bowel Sounds normal. MUSCULOSKELETAL: No leg swelling NEUROLOGIC EXAM: Alert and oriented x3. No focal neurologic deficits PSYCHIATRIC: Stable mood SKIN: Some bruise on upper chest - Constitutional Vitals: Temp Pulse Resp BP Pulse Ox 98.9 F 80 20 136/71 96 03/18/20 07:00 03/18/20 07:00 03/18/20 07:00 03/18/20 07:00 03/18/20 07:00 Results - Labs Labs: Laboratory Last Values CSF Appearance Clear 03/16/20 09:15 CSF Color Colorless 03/16/20 09:15 CSF WBC 0 /mm3 (1-10) 03/16/20 09:15 CSF RBC 0 /mm3 (0-0) 03/16/20 09:15 CSF Lymphocytes % 64.7 % (40-80) 03/16/20 09:15 CSF Monocytes % 35.3 % (15-45) 03/16/20 09:15 CSF Pathologist Review C 03/16/20 09:15 CSF Glucose 74 mg/dL 03/16/20 09:15 CSF Total Protein 62 mg/dL 03/16/20 09:15 Microbiology: Microbiology 03/16/20 09:15 Cerebral Spinal Fluid CSF Culture - Preliminary Imlls/IV: Voiding Method Indwelling Catheter IV Catheter Type [Right INT / Saline Lock Forearm] IV Catheter Type [Left Upper INT / Saline Lock arm] Active Medications - Current Medications Current Medications: Generic Name Dose Route Start Last Admin Trade Name Freq PRN Reason Stop Dose Admin Enoxaparin Sodium 70 mg 03/18/20 10:00 Enoxaparin 1 mg/kg (70 mg) SUB-Q Q24HR FELICIANO Protocol Hydralazine HCl 5 mg 03/16/20 11:48 03/18/20 03:47 Apresoline IV 5 mg Q4H PRN Administration Hypertension Clindamycin HCl 900 mg in 50 mls @ 100 mls/hr 03/16/20 14:00 03/18/20 08:12 Cleocin 900 Mg/50 Ml IV 100 mls/hr Q8HR FELICIANO Administration Protocol Sodium Chloride 1,000 mls @ 75 mls/hr 03/16/20 11:48 Nacl 0.9% 1000 Ml IV DIRECT FELICIANO Miscellaneous Medication 2.5 drops 03/17/20 19:34 Latanoprostene Bunod [Vyzulta] OP DAILY FELICIANO Miscellaneous Medication 25 mg 03/17/20 19:34 Mirabegron [Myrbetriq] PO QDAY FELICIANO Oxybutynin Chloride 5 mg 03/18/20 14:00 Ditropan PO TID FELICIANO Prednisone 4 mg 03/17/20 21:00 03/18/20 09:32 Prednisone PO 4 mg QDAY FELICIANO Administration Tramadol HCl 50 mg 03/16/20 11:48 03/18/20 00:27 Ultram PO 50 mg Q6H PRN Administration Pain, Moderate (4-6)
--- NOTE | 2020-03-18 12:32 | Progress Note ---
Assessment and Plan 85 y/o F POD2 s/p Revision of VPS, strata Valve @ 1.0 -will consult PT to assist with mobilization -will consult social work to assist with rehab facility placement -lovenox for dvt prophylaxis -regular diet -OOB to chair as tolerated -pain control prn -dispo: - case management for placement Subjective Date of service: 03/18/20 Principal diagnosis: ORCHARD SPRAYER Shunt malfunction Interval history: Ms. Hancock denies acute complaints at this time. Her pain is well controlled, she is tolerating a full liquid diet. She has not yet worked with Physical therapy. Objective - Exam Narrative Exam: seen and examined NC/AT R post-auricular incision c/d/i, dressing intact A&Ox2 CNII-XII intact MAEW, follows commands x 4 sensation intact - Vital Sign Vital Signs - 12hr 03/18/20 03/18/20 03/18/20 03:47 05:54 07:00 Temperature 97.4 F L 98.9 F Pulse Rate 80 80 Respiratory 18 20 Rate Blood Pressure 177/98 138/62 Blood Pressure 136/71 [Left] O2 Sat by Pulse 96 96 Oximetry 03/18/20 11:16 Temperature 98.3 F Pulse Rate 74 Respiratory 20 Rate Blood Pressure 115/61 Blood Pressure [Left] O2 Sat by Pulse 94 Oximetry
[2020-03-18] MEDS: ENOXAPARIN 80 MG/0.8 ML INJ SUB-Q SCH (14:24)
[2020-03-18] MEDS: OXYBUTYNIN 5 MG TAB PO SCH ×2 (14:26→21:20)
[2020-03-19] MEDS: hydrALAZINE 20 MG/1 ML INJ IV PRN (02:09)
--- NOTE | 2020-03-19 08:03 | Progress Note ---
Subjective Date of service: 03/19/20 Principal diagnosis: POST COMMANDER Shunt malfunction Interval history: 85 y/o female admitted post op for ventricular drain revision. As per glove brusher to take care of the patient after transfer to the medical floor. Patient has a history of glaucoma and overactive bladder. Patient had a malfunctioning POST COMMANDER shunt for which had a revision of the POST COMMANDER shunt.. Patient is doing well. No fever. 03/19 patient is awake and alert and responds to questions appropriately, she offers no specific complaints Awaiting PT evaluation Neurosurgery note reviewed A/P: POST COMMANDER shunt malfunctioning Status post surgery Awaiting PT evaluation for rehab placement History of overactive bladder/urinary retention Patient has a indwelling Thakkar catheter Continue Myrbetriq and oxybutynin History of glaucoma Continue present home medications Will order basic labs Objective - Constitutional Vitals: Vital Signs - 12hr 03/18/20 03/19/20 03/19/20 23:17 02:09 05:43 Temperature 97.8 F 98.1 F Pulse Rate 71 70 Respiratory 18 18 Rate Blood Pressure 156/75 177/90 154/65 O2 Sat by Pulse 94 91 Oximetry 03/19/20 07:46 Temperature 97.6 F Pulse Rate 76 Respiratory 16 Rate Blood Pressure 116/52 O2 Sat by Pulse 90 Oximetry General appearance: Present: no acute distress, well-nourished - EENT Eyes: PERRL, EOM intact ENT: hearing intact, clear oral mucosa - Neck Neck: supple, normal ROM, no masses or JVD - Respiratory Respiratory effort: normal Respiratory: bilateral: CTA - Cardiovascular Rhythm: regular Heart Sounds: Present: S1 & S2 Extremities: No edema - Gastrointestinal General gastrointestinal: Present: soft, non-tender Rectal Exam: deferred - Genitourinary Female genitourinary: deferred - Integumentary Integumentary: clear (Erythematous rash/ecchymosis over the upper chest and both arms), erythema - Neurologic Neurologic: no focal deficits, moves all extremities - Psychiatric Psychiatric: appropriate mood/affect
[2020-03-19] MEDS: predniSONE 5 MG/5 ML ORAL LIQUID PO SCH (10:40)
[2020-03-19] MEDS: ENOXAPARIN 80 MG/0.8 ML INJ SUB-Q SCH (10:41)
[2020-03-19] MEDS: OXYBUTYNIN 5 MG TAB PO SCH ×3 (10:49→19:52)
[2020-03-19] MEDS: SODIUM CHLORIDE 0.9% 1000 ML 1,000 ML IV SCH (13:03)
[2020-03-20] MEDS ORDERED: OXYBUTYNIN 5 MG TAB ONE ×2 (06:00→14:00)
[2020-03-20] MEDS ORDERED: SODIUM CHLORIDE 0.9% 1000 ML IV SOLN ONE (06:00)
[2020-03-20] MEDS: OXYBUTYNIN 5 MG TAB PO SCH ×3 (08:00→22:14)
[2020-03-20] MEDS: predniSONE 5 MG/5 ML ORAL LIQUID PO SCH (09:10)
[2020-03-20] MEDS: ENOXAPARIN 80 MG/0.8 ML INJ SUB-Q SCH (11:00)
[2020-03-20] MEDS ORDERED: CLINDAMYCIN/D5W 900 MG/50 ML IVPB IV ONE (14:00)
[2020-03-20] MEDS: hydrALAZINE 20 MG/1 ML INJ IV PRN (20:31)
--- NOTE | 2020-03-20 21:15 | Progress Note ---
Assessment and Plan 85 y/o female admitted post op for ventricular drain revision. As per crown attacher to take care of the patient after transfer to the medical floor. Patient has a history of glaucoma and overactive bladder. Patient had a malfunctioning MANAGER ETHICS shunt for which had a revision of the MANAGER ETHICS shunt.. Patient is doing well. No fever. 03/19 patient is awake and alert and responds to questions appropriately, she offers no specific complaints Awaiting PT evaluation Neurosurgery note reviewed 06/20: Patient needs subacute rehab, special education case manager notified, waiting on placement for discharge A/P: MANAGER ETHICS shunt malfunctioning Status post surgery Awaiting for rehab placement History of overactive bladder/urinary retention Patient has a indwelling Thakkar catheter Continue Myrbetriq and oxybutynin History of glaucoma Continue present home medications DVT prophylaxis, SCD Subjective Date of service: 03/20/20 Principal diagnosis: MANAGER ETHICS Shunt malfunction Interval history: Patient seen and examined Discussed with RN at the bedside Vitals noted Patient needs subacute rehab, pending placement Objective - Exam Narrative Exam: General appearance: Present: no acute distress, well-nourished - EENT Eyes: PERRL, EOM intact ENT: hearing intact, clear oral mucosa - Neck Neck: supple, normal ROM, no masses or JVD - Respiratory Respiratory effort: normal Respiratory: bilateral: CTA - Cardiovascular Rhythm: regular Heart Sounds: Present: S1 & S2 Extremities: No edema - Gastrointestinal General gastrointestinal: Present: soft, non-tender Rectal Exam: deferred - Genitourinary Female genitourinary: deferred - Integumentary Integumentary: clear (Erythematous rash/ecchymosis over the upper chest and both arms), erythema - Neurologic Neurologic: no focal deficits, moves all extremities - Psychiatric Psychiatric: appropriate mood/affect - Constitutional Vitals: Vital Signs - 12hr 03/20/20 03/20/20 03/20/20 11:13 15:18 19:33 Temperature 98.8 F 98.2 F 98.4 F Pulse Rate 71 72 82 Respiratory 18 24 18 Rate Blood Pressure 158/72 147/74 189/83 O2 Sat by Pulse 97 96 95 Oximetry 03/20/20 20:31 Temperature Pulse Rate 82 Respiratory Rate Blood Pressure 189/83 O2 Sat by Pulse Oximetry - Labs CBC & Chem 7: 03/21/20 05:48 03/21/20 05:48
[2020-03-21] MEDS: traMADol 50 MG TAB PO PRN (00:18)
[2020-03-21] MEDS: hydrALAZINE 20 MG/1 ML INJ IV PRN (05:09)
[2020-03-21] MEDS: SODIUM CHLORIDE 0.9% 1000 ML 1,000 ML IV SCH (05:24)
[2020-03-21] MEDS ORDERED: CLINDAMYCIN/D5W 900 MG/50 ML IVPB IV ONE (06:00)
[2020-03-21 06:20] LABS: Basophils # (Auto) 0.1 K/mm3 (0.0-0.1); Basophils % (Auto) 0.5 % (0.0-1.8); Blood Urea Nitrogen 11 mg/dL (7-17); Calcium 8.7 mg/dL (8.4-10.2); Eosinophils # (Auto) 0.4 K/mm3 (0.0-0.4); Eosinophils % (Auto) 4.2 % (0.0-4.3); Hematocrit 39.3 % (30.3-42.9); Hemoglobin 13.4 gm/dl (10.1-14.3); Hemolysis Index 9; Lymphocytes # (Auto) 2.1 K/mm3 (1.2-5.4); Lymphocytes % (Auto) 22.2 % (13.4-35.0); Mean Corpuscular HGB Conc 34 % (30-34); Mean Corpuscular Volume 88 fl (79-97); Monocytes # (Auto) 1.2 K/mm3 (0.0-0.8); Monocytes % (Auto) 12.2 % (0.0-7.3); Platelet Count 264 K/mm3 (140-440); Red Blood Count 4.47 M/mm3 (3.65-5.03); Red Cell Distribution Width 14.1 % (13.2-15.2)
[2020-03-21 06:27] LABS: BUN/Creatinine Ratio 22
[2020-03-21 11:48] VITALS: BP 151/81
[2020-03-21] MEDS ORDERED: POTASSIUM CHLORIDE ER 20 MEQ TAB PO NR (13:12)
[2020-03-21] MEDS: predniSONE 5 MG/5 ML ORAL LIQUID PO SCH (13:31)
[2020-03-21] MEDS: ENOXAPARIN 80 MG/0.8 ML INJ SUB-Q SCH (13:31)
[2020-03-21] MEDS: OXYBUTYNIN 5 MG TAB PO SCH (13:32)
--- NOTE | 2020-03-21 17:25 | Discharge Summary ---
Providers - Providers Date of Admission: 03/16/20 10:34 Date of discharge: 03/21/20 Attending physician: DENNIS SEAMAN 03/17/20 12:32 Consult to Physician [CONS] Routine Comment: Consulting Provider: MANDI BARRIENTOS Physician Instructions: Please add to their list. 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 Hospitalist service was consulted to take care of the patient after transfer to the medical floor. Patient was monitored in the medical floor, postoperative care was given prior neurosurgery recommendation. Blood pressure medications were adjusted. Physical therapy recommended subacute rehab. Patient was then discharged to subacute rehab in stable condition. Discharge diagnosis: Malfunctioning BAND SPLICER shunt, status post surgery History of overactive bladder/urinary retention History of glucoma Hypertension, moderately controlled likely due to pain -Need further follow-up as an outpatient Disposition: [place]-03 SNF [facility] Time spent for discharge: 34 minutes Core Measure Documentation - Palliative Care Palliative Care/ Comfort Measures: Not Applicable - Core Measures Any of the following diagnoses?: history only Exam - Physical Exam Narrative exam: General appearance: Present: no acute distress, well-nourished - EENT Eyes: PERRL, EOM intact ENT: hearing intact, clear oral mucosa - Neck Neck: supple, normal ROM, no masses or JVD - Respiratory Respiratory effort: normal Respiratory: bilateral: CTA - Cardiovascular Rhythm: regular Heart Sounds: Present: S1 & S2 Extremities: No edema - Gastrointestinal General gastrointestinal: Present: soft, non-tender Rectal Exam: deferred - Genitourinary Female genitourinary: deferred - Integumentary Integumentary: clear (Erythematous rash/ecchymosis over the upper chest and both arms), erythema - Neurologic Neurologic: no focal deficits, moves all extremities - Psychiatric Psychiatric: appropriate mood/affect - Constitutional Vitals: Temp Pulse Resp BP Pulse Ox 98.2 F 83 16 151/81 94 03/21/20 11:30 03/21/20 11:30 03/21/20 11:30 03/21/20 11:30 03/21/20 11:30 Plan Activity: fall precautions Weight Bearing Status: Non-Weight Bearing Diet: low fat, low salt Special Instructions: record daily BP diary Follow up with: LAM HUFF MD [Primary Care Provider] - 7 Days Prescriptions: traMADoL [Ultram 50 MG tab] 50 mg PO Q6H PRN #20 tablet PRN Reason: Pain, Moderate (4-6)
[2020-03-21] MEDS ORDERED: LATANOPROSTENE BUNOD OP SCH (22:00)
== END 2020-03-21 16:05 | DRG 33 ==
LOC: OR 06:07 → EDSTATUS 07:30 → CC1 10:34 → 3B-SURG 03-17 19:16
PROVIDERS: ADMIT Neurological Surgery; ATTEND Internal Medicine
PROC: 00W60JZ Revision of Synthetic Substitute in Cerebral Ventricle, Open Approach (ICD-10-PCS; principal; 2020-03-16)
DX: T85.01XA Breakdown (mechanical) of ventricular intracranial (communicating) shunt, initial encounter (principal); Z20.828 Contact with and (suspected) exposure to other viral communicable diseases; Y83.8 Other surgical procedures as the cause of abnormal reaction of the patient, or of later complication, without mention of misadventure at the time of the procedure; Y92.89 Other specified places as the place of occurrence of the external cause; Z82.49 Family history of ischemic heart disease and other diseases of the circulatory system; Z88.1 Allergy status to other antibiotic agents; Z88.5 Allergy status to narcotic agent; Z88.2 Allergy status to sulfonamides; Z88.8 Allergy status to other drugs, medicaments and biological substances; N32.81 Overactive bladder; H40.9 Unspecified glaucoma
CPT/HCPCS: 36415; 70450; 80048; 82947; 84160; 85025; 87116; 89051; G0378; A4649; C1729; J0360; J1100; J1650; J2370; J2405; J2704; J3010; J7030; J7050; J7512; U0003